=== PATIENT | female | born 1975 | race Caucasian/White ===

== ENCOUNTER → 2019-12-23 10:03 | Outpatient (CLI) | payer OTHER, SELFPAY ==
--- NOTE | ~2019-12-23 | XR_ITS ---
EXAMINATION: [id number] INDICATION: Pleurodynia and right-sided chest pain TECHNIQUE: A frontal view of the chest and 3 views of the right ribs were obtained. COMPARISON: None. FINDINGS: The lungs are free of acute opacities. There is no pleural effusion or pneumothorax. The ca rdiomediastinal silhouette is normal. Cholecystectomy clips are noted in the right upper quadrant. No displaced rib fracture is identified. IMPRESSION: 1. No acute cardiopulmonary abnormality or evidence of displaced rib fracture. Reviewed, dictated and finalized at location B.
--- NOTE | ~2019-12-23 | US_ITS ---
EXAMINATION: US abdomen complete DATE: 12/23/2019 10:42 INDICATION: Right upper quadrant pain TECHNIQUE: Multiple grayscale and Doppler ultrasound images of the abdomen were obtained. COMPARISON: None available FINDINGS: The head, body, and tail of the pancreas are normal. The liver is normal with normal echoge nicity and echotexture. No surface nodularity. Normal hepatopetal flow in the main portal vein. The g allbladder is surgically absent. The normal common bile duct measures 4 mm. The visualized portions o f the aorta and inferior vena cava are normal. The right kidney measures 10.2 x 3.6 x 4.9 cm. The left kidney measures 10.0 x 4.8 x 4.4 cm. The kidn eys demonstrate normal parenchymal echogenicity. There is no hydronephrosis. The spleen is normal in appearance and measures 9.3 cm. IMPRESSION: 1. Unremarkable postcholecystectomy ultrasound. Reviewed, dictated and finalized at location B.
== END ==
PROVIDERS: PCP Nurse Practitioner Family; Visit Provider Nurse Practitioner Family
DX: R10.11 Right upper quadrant pain (principal); R07.81 Pleurodynia; Z90.49 Acquired absence of other specified parts of digestive tract
CPT/HCPCS: 71101; 76700

== ENCOUNTER → 2022-03-26 10:07 | Outpatient (CLI) | payer OTHER, SELFPAY ==
--- NOTE | ~2022-03-26 | XR_ITS ---
EXAM: [id number] DATE: 03/26/2022 10:20 HISTORY: no injury neck pain x 1 yr , left arm weakness for months . COMPARISON: None available. FINDINGS: Craniocervical association and atlantoaxial joint are aligned. No prevertebral soft tissue swelling. Grade 1 retrolistheses at C5-6 and C6-7, with upper cervical spine straightening and rever sed lordosis at C5-6. Vertebral body heights are maintained. Moderate degenerative disc disease and m arginal osteophytosis at C5-6 and C6-7. Multilevel facet hypertrophy. IMPRESSION: Grade 1 degenerative listheses and moderate degenerative disc disease at C5-6 and C6-7. M ultilevel cervical facet arthropathy. Reviewed, dictated and finalized at location K. [employer] IMPRESSION: Grade 1 degenerative listheses and moderate degenerative disc disea se at C5-6 and C6-7. Multilevel cervical facet arthropathy.
== END ==
PROVIDERS: PCP Family Medicine; Visit Provider Nurse Practitioner Family
DX: M50.322 Other cervical disc degeneration at C5-C6 level (principal); M12.88 Other specific arthropathies, not elsewhere classified, other specified site
CPT/HCPCS: 72040

== ENCOUNTER → 2022-04-30 15:47 | Outpatient (CLI) | payer OTHER, SELFPAY ==
--- NOTE | ~2022-04-30 | MR_ITS ---
MRI of the cervical spine Clinical History: Cervicalgia Technique: Axial T2-weighted and gradient images, and sagittal T1-weighted, T2-weighted, and T2 fat s at images were acquired. Findings: There is no fracture of cervical spine. Minimal grade 1 retrolisthesis of C5 over C6 noted. No suspicious bone marrow signal abnormality seen. There are mild reactive marrow signal changes due to degenerative disc disease. At C2-C3, there is no disc bulge or herniation. There is no spinal canal stenosis or cord compression . There is minimal left neural foraminal narrowing related to left facet joint hypertrophy. Right alexis ral foramen preserved. At C3-C4, there is no disc bulge or herniation. No spinal canal stenosis, cord compression, or defini te neural foraminal narrowing. At C4-C5, there is no disc bulge or herniation. No spinal canal stenosis, cord compression, or neural foraminal narrowing. At C5-C6, there is degenerative disc narrowing with mild disc bulge. This results in minimal canal st enosis but no beny cord compression. There is associated bilateral neural foraminal narrowing, right worse than left. At C6-C7, disc bulge results in mild canal stenosis but no beny cord compression. There is probable minimal bilateral neural foraminal narrowing. No abnormal signal seen in the spinal cord. No epidural mass or collection seen. Paravertebral soft t issues are unremarkable. Impression: Minimal degenerative spondylosis, as detailed above. There is neural foraminal narrowing at C2-C3 and C5-C6, as detailed above. Minimal grade 1 anterolisthesis of C5 over C6. Reviewed, dictated and finalized at location [] [employer] Impression: Minimal degenerative spondylosis, as detailed above. There is neural foraminal narrowing at C2-C3 and C5-C6, as detailed above. Minimal grade 1 anterolisthesis of C5 over C6.
== END ==
PROVIDERS: PCP Family Medicine; Visit Provider Nurse Practitioner Family
DX: M54.2 Cervicalgia (principal); M43.02 Spondylolysis, cervical region
CPT/HCPCS: 72141

== ENCOUNTER 2024-01-14 05:50 | Day surgery (SDC) | payer OTHER, SELFPAY ==
[2023-11-13 14:37] VITALS: BMI 22.9
[2024-01-01 10:02] VITALS: BMI 22.1
[2024-01-14 06:15] VITALS: BP 115/79; PULSE 63; RESP 15; TEMP 36.8; O2SAT 99
--- NOTE | 2024-01-14 07:06 | PM.HPGS ---
History of Present Illness History of Present Illness Consent: Risks, benefits, and alternatives have been discussed and questions answered. Patient agrees to proceed with procedure. Chief complaint: Neoplasm Screening Narrative: Moni Nath is a 48 year old female colonoscopy. Patient's current weight appetite and bowel movements are normal. Patient denies abdominal pain. She has had no bleeding. Family history is significant that her mother had colon polyps. Grandparent had colon cancer. Review of Systems Review of Systems: All systems reviewed & are unremarkable except as noted in HPI and below PMFSH Past Medical History Medical History (Updated 01/13/24 @ 09:37 by Carol Anderson MA) Encounter for breast augmentation FHx: cholecystectomy Thyroid cancer Surgical History Surgical History H/O abdominoplasty H/O breast augmentation H/O sinus surgery H/O thyroidectomy History of cholecystectomy Hx of tonsillectomy Family History Family History Grandparent Cerebrovascular accident Diabetes mellitus Acute myocardial infarction Colon cancer Heart disease Father Malignant neoplasm of prostate Cerebrovascular accident Heart disease Hypertension Mother Interstitial cystitis Sibling Asthma Social History Social History Smoking status: Never smoker Second hand tobacco smoke exposure: No Alcohol intake: current Drinks per week: 6 Substance use: current Substance use type: marijuana Other substance usage details: marijuana gummies Last use: 12-17-23 Do You Feel Safe in your Home?: Yes Lack of Transportation: No Lack of Food: Never True Current Housing: I Have Housing Concerned About Future Housing: No Difficulty Paying Gas/Electric Bills: No Difficulty Paying for Meds: No Currently Unemployed: No Education: Associate Degree Difficulty w/ Childcare or Family Care: No Living arrangements: with family Occupation/Education: occupation 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 Gender identity (if verbalized by the patient): Female Meds Home Medications and Allergies Home Medications Medication Instructions Recorded Confirmed Type progesterone micronized 200 mg 200 mg PO QHS 01/15/22 01/14/24 History capsule testosterone 50 mg/5 gram (1 %) 1 tube transdermal QAM 01/15/22 01/14/24 History transdermal gel tizanidine 2 mg tablet 2 mg PO TID PRN muscle spasticity 12/17/22 01/14/24 Rx #30 tabs estradiol 0.01% (0.1 mg/gram) 1 g vaginal 2XW 10/15/23 01/14/24 History vaginal cream levothyroxine 150 mcg tablet 150 mcg PO DAILY 10/15/23 01/14/24 History (Synthroid) omalizumab 75 mg/0.5 mL 75 mg subcut ONCE 10/15/23 01/14/24 History subcutaneous auto-injector (Xolair) t 3 10 mg .Route DAILY 10/15/23 01/14/24 History meloxicam 15 mg tablet 15 mg PO DAILY 01/01/24 01/14/24 History fluticasone propionate 50 1 spray intranasal BID #16 grams 01/05/24 01/14/24 Rx mcg/actuation nasal spray,suspension (Flonase Allergy Relief) Allergies Allergy/AdvReac Type Severity Reaction Status Date / Time cephalexin AdvReac Intermediate Hives Verified 01/14/24 06:13 Vital Signs Vital Signs - 24 hr 01/14/24 06:15 Temperature 98.2 F Pulse Rate 63 Respiratory Rate 15 Blood Pressure 115/79 Pulse Oximetry 99 Oxygen Delivery Room Air Exam Narrative: Physical exam reveals patient to be alert. Vital signs stable. HEENT exam is unremarkable. Patient is anicteric. Lungs are clear to auscultation and percussion. Heart is without murmur or extra sounds. Abdomen bowel sounds are present soft nontender with no organomegaly. Digital external rectal exam normal. Assessment and Plan Assessment and plan (1) Colon cancer screening: Code(s): Z12.11 -
--- NOTE | 2024-01-14 07:10 | WPDANESEPPF ---
Anes - Initial Pre Proc Eval Procedure: Operation Date: 01/14/24 07:30 Proposed Procedures p Screening Colonoscopy - Jayme Swanson MD Date/Time: 01/14/24 07:10 Surgeon: Jayme Swanson MD Pre Op Diagnosis: Neoplasm Screening Patient Data Age: 48 Gender: F Height: 1.75 m Weight: 71.4 kg Last Vital Signs Temp 36.8 C 01/14/24 06:15 Pulse 63 01/14/24 06:15 Resp 15 01/14/24 06:15 BP 115/79 01/14/24 06:15 Pulse Ox 99 01/14/24 06:15 O2 Del Method Room Air 01/14/24 06:15 Allergies Allergy/AdvReac Type Severity Reaction Status Date / Time cephalexin AdvReac Intermediate Hives Verified 01/14/24 06:13 Home Medications Medication Instructions Recorded Confirmed Type progesterone micronized 200 mg 200 mg PO QHS 01/15/22 01/14/24 History capsule testosterone 50 mg/5 gram (1 %) 1 tube transdermal QAM 01/15/22 01/14/24 History transdermal gel tizanidine 2 mg tablet 2 mg PO TID PRN muscle spasticity 12/17/22 01/14/24 Rx #30 tabs estradiol 0.01% (0.1 mg/gram) 1 g vaginal 2XW 10/15/23 01/14/24 History vaginal cream levothyroxine 150 mcg tablet 150 mcg PO DAILY 10/15/23 01/14/24 History (Synthroid) omalizumab 75 mg/0.5 mL 75 mg subcut ONCE 10/15/23 01/14/24 History subcutaneous auto-injector (Xolair) t 3 10 mg .Route DAILY 10/15/23 01/14/24 History meloxicam 15 mg tablet 15 mg PO DAILY 01/01/24 01/14/24 History fluticasone propionate 50 1 spray intranasal BID #16 grams 01/05/24 01/14/24 Rx mcg/actuation nasal spray,suspension (Flonase Allergy Relief) Patient hx anesthesia problems: none Family hx anesthesia problems: none Results Review: All pre-operative results and documents have been reviewed as part of the pre-operative evaluation. [facility] Past Medical History Medical History Encounter for breast augmentation FHx: cholecystectomy Thyroid cancer Surgical History Surgical History H/O abdominoplasty H/O breast augmentation H/O sinus surgery H/O thyroidectomy History of cholecystectomy Hx of tonsillectomy Family History Family History Grandparent Cerebrovascular accident Diabetes mellitus Acute myocardial infarction Colon cancer Heart disease Father Malignant neoplasm of prostate Cerebrovascular accident Heart disease Hypertension Mother Interstitial cystitis Sibling Asthma Social History Social History Smoking status: Never smoker Second hand tobacco smoke exposure: No Alcohol intake: current Drinks per week: 6 Substance use: current Substance use type: marijuana Other substance usage details: marijuana gummies Last use: 12-17-23 Do You Feel Safe in your Home?: Yes Lack of Transportation: No Lack of Food: Never True Current Housing: I Have Housing Concerned About Future Housing: No Difficulty Paying Gas/Electric Bills: No Difficulty Paying for Meds: No Currently Unemployed: No Education: Associate Degree Difficulty w/ Childcare or Family Care: No Living arrangements: with family Occupation/Education: occupation 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 Informed Consent: The patient's anesthetic plan and its a
[2024-01-14] MEDS: LACTATED RINGERS 1,000 ML 150 ML IV CONT (07:15)
[2024-01-14 07:50] VITALS: BP 106/65; PULSE 65; RESP 14; O2SAT 99
[2024-01-14 08:00] VITALS: BP 99/62; PULSE 61; RESP 18; O2SAT 100
[2024-01-14 08:10] VITALS: BP 102/66; PULSE 63; RESP 18; O2SAT 100
--- NOTE | 2024-01-14 10:43 | WPDANESPN ---
Anes - Prog Note Post-Op Date/Time: 01/14/24 10:43 Cardiovascular status: normal Respiratory status: normal Airway patency: baseline Mental status: baseline Post-Op hydration status: normal Vital Signs: Last Vital Signs Temp 36.8 C 01/14/24 06:15 Pulse 63 01/14/24 08:10 Resp 18 01/14/24 08:10 BP 102/66 01/14/24 08:10 Pulse Ox 100 01/14/24 08:10 O2 Del Method Room Air 01/14/24 08:10 Pain Score (VAS): 0/10 I/O: Intake & Output 01/13/24 01/14/24 01/14/24 23:59 07:59 15:59 Intake Total 800 200 Balance 800 200 Patient Feedback: Patient satisfied with anesthetic care.
== END 2024-01-14 08:20 | disposition home or self-care (01) ==
PROVIDERS: PCP Family Medicine; Visit Provider Internal Medicine Gastroenterology
PROC: 0DJD8ZZ Inspection of Lower Intestinal Tract, Via Natural or Artificial Opening Endoscopic (ICD-10-PCS; CPT 45378; principal; 2024-01-14 07:30)
DX: Z12.11 Encounter for screening for malignant neoplasm of colon (principal); Z83.718 Family history of other colon polyps; K64.8 Other hemorrhoids
CPT/HCPCS: 45378